=== PATIENT | male | born 1965 | race Caucasian/White ===

== ENCOUNTER → 2020-08-25 | Outpatient (CLI) | payer BC, OTHER ==
[~2020-08-25] MED LIST: ACETAMINOPHEN325 M1 PO; ALPRAZOLAM 0.50.5 M1 PO; AMLODIPINE BESY10 MG PO; ASPIRIN EC325 M1 PO; ASPIRIN EC81 M1 PO; AZITHROMYCIN 2250 MG PO; CALCIUM CARBO1000 MG PO; COUMADIN 1MG TAB1 M1 PO; COUMADIN 3 MG TA3 M1 PO; COUMADIN 3 MG TA3 MG PO; COUMADIN 5 MG TA5 M1 PO; CRESTOR20 MG PO; DOXYCYCLINE 10100 M1 PO; ENDOCET 10-3251 EACH PO; ENOXAPARIN100 MG/1 M SUBQ; FERREX-150 PLU150 MG PO; FUROSEMIDE 40 M40 M1 PO; HYDROCHLOROTHIA25 M1 PO; HYDROCODON-ACE1 EAC4 PO; K-DUR 20 MEQ T20 MEQ PO; LASIX 40 MG TAB40 M1 PO; LISINOPRIL-HCT1 EAC1; LISINOPRIL10 MG PO; LOPRESSOR25 PO; MOM PO; MULTIVITAMINS PO; NORCO 10-325 T1 EACH PO; NORVASC 5 MG TAB5 MG PO; NORVASC10 MG PO; OXYCODONE HCL 55 MG PO; OXYCODONE HCL15 MG PO; OXYCODONE HCL5 M1 PO; OXYCODONE-ACET1 EAC2 PO; OXYCODONE-ACET1 EACH PO; OXYCODONE-APAP1 EAC6 PO; OXYCONTIN CR 1010 M1 PO; OXYCONTIN CR 2020 MG PO; OXYCONTIN10 M1 PO; OXYCONTIN10 MG PO; PHISOHEX148 ML TOP; POTASSIUM20 PO; PROAIR HFA8.5 GM INH; ROXICET 5-3251 EACH PO; SENOKOT-S1 TA1 PO; SUBOXONE SUBLING; TOPROL XL50 MG PO; UNICOMPLEX M TA1 TA1 PO; ZYVOX600 MG PO
== END ==
LOC: SJCVCIMAG 08:22
PROVIDERS: ATTEND Internal Medicine
DX: I48.91 Unspecified atrial fibrillation (principal); I25.10 Atherosclerotic heart disease of native coronary artery without angina pectoris; E78.5 Hyperlipidemia, unspecified; I10 Essential (primary) hypertension; E66.9 Obesity, unspecified; Z79.899 Other long term (current) drug therapy; Z79.82 Long term (current) use of aspirin; Z87.891 Personal history of nicotine dependence; Z88.8 Allergy status to other drugs, medicaments and biological substances